=== PATIENT | male | born 1980 | race African-American/Black ===

== ENCOUNTER 2017-08-02 19:15 | Emergency (ER) | payer SELFPAY ==
[~2017-08-02] VITALS: Ht 170.2 cm; Wt 142.0 kg
[~2017-08-02 19:15] MED LIST: HYDR-762 PO
[2017-08-02 19:22] VITALS: Ht 170.2 cm; Wt 142.0 kg
[2017-08-03] MEDS ORDERED: CYCL-319 PO (10:11)
[2017-08-03] MEDS ORDERED: ACET325T33 PO (10:11)
== END 2017-08-02 22:39 | disposition left against medical advice (07) ==
LOC: FTE 19:15
DX: Z53.21 Procedure and treatment not carried out due to patient leaving prior to being seen by health care provider (principal)